=== PATIENT | male | born 1980 | race Caucasian/White ===

== ENCOUNTER → 2017-11-25 | Outpatient (CLI) | payer OTHER | END | disposition home or self-care (01) | LOC: CFH 15:52 | PROVIDERS: ATTEND Emergency Medicine | DX: R10.30 Lower abdominal pain, unspecified (principal) | CPT/HCPCS: 76857 ==

== ENCOUNTER 2018-01-16 12:08 | Day surgery (SDC) | payer OTHER ==
[~2018-01-16] VITALS: Ht 190.5 cm; Wt 87.4 kg
[~2018-01-16 12:08] MED LIST: BUPIVACAINE/PF-EPI 0.5% 1:200K ONE; KETOROLAC 30 MG/1 ML ONE
[2018-01-16] MEDS ORDERED: LACTATED RINGERS 1,000 ML IV SCH (12:35)
[2018-01-16] MEDS ORDERED: LAMO200T3 PO (12:37)
[2018-01-16 12:44] VITALS: BP 129/81
[2018-01-16] MEDS ORDERED: FENTANYL PF 100 MCG/2ML ONE ×2 (12:59→15:12)
[2018-01-16] MEDS ORDERED: MIDAZOLAM 1 MG/ML, 2ML ONE ×2 (12:59→15:48)
[2018-01-16] MEDS ORDERED: PROPOFOL 10 MG/ML, 20ML ONE (14:10)
[2018-01-16] MEDS ORDERED: ONDANSETRON 2MG/ML, 2ML ONE (14:10)
[2018-01-16] MEDS ORDERED: DEXAMETHASONE 4 MG/ML, 1ML ONE (14:10)
[2018-01-16] MEDS ORDERED: GLYCOPYRROLATE 0.2MG/1ML, 5ML ONE (14:10)
[2018-01-16] MEDS ORDERED: NEOSTIGMINE 1 MG/ML, 10ML ONE (14:10)
[2018-01-16] MEDS ORDERED: CEFAZOLIN 1,000 MG ONE (14:10)
[2018-01-16] MEDS ORDERED: SUCCINYLCHOLINE 20 MG/ML, 10ML ONE (14:10)
[2018-01-16] MEDS ORDERED: ROCURONIUM 10MG/ML,5ML ONE (14:10)
[2018-01-16] MEDS ORDERED: OXYcodone 5 MG/5 ML ORAL.SOL UDC PO PRN (14:30)
[2018-01-16] MEDS ORDERED: ONDANSETRON ODT 8 MG PO PRN (14:30)
[2018-01-16] MEDS ORDERED: ACETAMINOPHEN 325 MG TABLET PO PRN (14:30)
[2018-01-16] MEDS ORDERED: FENTANYL PF 100 MCG/2ML IV PRN (14:30)
[2018-01-16] MEDS ORDERED: ONDANSETRON 2MG/ML, 2ML IV PRN (14:30)
[2018-01-16] MEDS ORDERED: PROMETHAZINE 25 MG/ML, 1ML IV PRN (14:30)
[2018-01-16] MEDS ORDERED: HYDROmorphone 2 MG/ML, 1ML IVPush PRN (14:30)
[2018-01-16] MEDS ORDERED: OXYcodone 5 MG/5 ML ORAL.SOL UDC ONE (15:58)
== END 2018-01-16 17:05 | disposition home or self-care (01) ==
LOC: OUT 12:08
PROVIDERS: ATTEND Surgery
DX: K40.90 Unilateral inguinal hernia, without obstruction or gangrene, not specified as recurrent (principal); F17.210 Nicotine dependence, cigarettes, uncomplicated; F31.9 Bipolar disorder, unspecified; Z98.890 Other specified postprocedural states; Z79.899 Other long term (current) drug therapy; Z72.89 Other problems related to lifestyle
CPT/HCPCS: 49505; C1781; J0330; J0690; J1100; J1885; J2250; J2405; J2704; J2710; J3010; J3490; J7120